=== PATIENT | female | born 1955 | race Caucasian/White ===

== ENCOUNTER → 2017-08-10 | Outpatient (CLI) | payer SELFPAY ==
[~2017-08-10] MED LIST: HYDMOR2 PO
[2017-08-11 14:49] LABS: Stool Occult Bld Immuno 1 Negative (NEGATIVE)
== END ==
LOC: LAB SHORT 15:00 → OLS 15:00
PROVIDERS: Internal Medicine
DX: Z12.11 Encounter for screening for malignant neoplasm of colon (principal)
CPT/HCPCS: 82274

== ENCOUNTER → 2018-01-19 | Outpatient (CLI) | payer OTHER ==
[2018-01-21 15:08] LABS: HPV 16 Negative (Negative); HPV 18 Negative (Negative); HPV OTHER HR TYPES Negative (Negative)
== END | disposition home or self-care (01) ==
LOC: LAB SHORT 15:00 → LAB 15:00
PROVIDERS: Internal Medicine
DX: Z01.419 Encounter for gynecological examination (general) (routine) without abnormal findings (principal)
CPT/HCPCS: 87624; G0145

== ENCOUNTER → 2019-08-08 | Outpatient (CLI) | payer OTHER ==
[2019-08-10 14:56] LABS: Stool Occult Bld Immuno 1 Negative (NEGATIVE)
== END | disposition home or self-care (01) ==
LOC: LAB SHORT 16:40 → LAB 16:40
PROVIDERS: Physician Assistant
DX: Z12.11 Encounter for screening for malignant neoplasm of colon (principal)
CPT/HCPCS: G0328

== ENCOUNTER → 2023-08-31 | Outpatient (CLI) | payer MEDICARE, OTHER ==
[~2023-08-31] MED LIST changes: +Bactrim Ds Tab1 EACH PO
== END | disposition home or self-care (01) ==
LOC: LAB 16:30 → LAB SHORT 16:30
DX: R39.9 Unspecified symptoms and signs involving the genitourinary system (principal)
CPT/HCPCS: 87086

== ENCOUNTER → 2024-03-29 | Outpatient (CLI) | payer MEDICARE, OTHER ==
[2024-03-29 17:42] LABS: BASOPHILS ABSOLUTE AUTO 0.02 K/mm3 (0.00-0.23); BASOPHILS PERCENT AUTO 1 % (0-2); EOSINOPHILS ABSOLUTE AUTO 0.09 K/mm3 (0.00-0.68); EOSINOPHILS PERCENT AUTO 2 % (0-6); Hematocrit 37.7 % (33.0-51.0); Hemoglobin 13.1 g/dL (11.5-16.0); IMMATURE GRAN ABSOLUTE AUTO 0.01 K/mm3 (0.00-0.10); IMMATURE GRAN PERCENT AUTO 0 % (0-1); LYMPHOCYTES ABSOLUTE AUTO 0.86 K/mm3 (0.84-5.20); LYMPHOCYTES PERCENT AUTO 20 % (21-46); MONOCYTES ABSOLUTE AUTO 0.27 K/mm3 (0.16-1.47); MONOCYTES PERCENT AUTO 6 % (4-13); Mean Corpuscular HGB 29.1 pg (26.0-34.0); Mean Corpuscular HGB Conc 34.7 g/dL (31.5-36.5); Mean Corpuscular Volume 84 fL (80-100); Mean Platelet Volume 8.8 fL (9.1-12.4); NEUTROPHILS ABSOLUTE AUTO 3.06 K/mm3 (1.96-9.15); NEUTROPHILS PERCENT AUTO 71 % (41-73); Platelet Count 149 K/mm3 (150-400); RDW Coefficient Variation 12.3 % (11.7-14.2); RDW Standard Deviation 37.5 fL (35.1-46.3); White Blood Cell Count 4.31 K/mm3 (4.00-11.30)
[2024-03-29 18:48] LABS: Alanine Aminotransfer (ALT/SGP 36 U/L (12-78); Albumin, Blood 3.2 g/dL (3.4-5.0); Albumin/Globulin Ratio 1.1 (0.8-1.8); Alk Phos 68 U/L (50-136); Anion Gap 13 mmol/L (3-11); Aspartate Aminotrans (AST/SGOT 22 U/L (12-37); Bilirubin, Total 0.8 mg/dL (0.1-1.0); Blood Urea Nitrogen 11 mg/dL (8-24); Bun/Creatinine Ratio 11.7 (12.0-20.0); CHOL/HDL RATIO 4.9; CO2, Blood 21 mmol/L (21-32); Calcium, Blood 8.6 mg/dL (8.5-10.1); Chloride, Blood 107 mmol/L (98-108); Cholesterol 231 mg/dL (50-200); Creatinine, Blood 0.94 mg/dL (0.40-1.00); Globulin, Blood 2.8 g/dL (2.2-4.0); Glomerular Filtration Rate 67 (60-); Glucose, Blood 104 mg/dL (70-99); HDL Cholesterol 47 mg/dL (>39); LDL/HDL RATIO 3.2; Low Density Lipoprotein Chol 153 mg/dL (0-110); Potassium, Blood 3.8 mmol/L (3.5-5.5); Sodium, Blood 137 mmol/L (136-145); Triglycerides 157 mg/dL (30-160); Very Low Density Lipoprot Chol 31 mg/dL (6-32)
== END ==
LOC: LAB SHORT 14:53 → LAB 14:53
PROVIDERS: Family Medicine
DX: I10 Essential (primary) hypertension (principal)
CPT/HCPCS: 36415; 80053; 80061; 84443; 85025

== ENCOUNTER 2024-07-19 07:28 | Day surgery (SDC) | payer MEDICARE, OTHER ==
[~2024-07-19] VITALS: Ht 161 cm; Wt 89.9 kg
[~2024-07-19 07:28] MED LIST changes: +CYCL10 PO; +GABA100 PO; +Lactated Ringer's 1,000 ML IV SCH; +MONT10T PO; +Prinivil10 MG PO; +TRAZ100 PO; +propofoL 50 ML IV ONE
--- NOTE | 2024-07-19 08:10 | NUR ---
History, Chart, Medications and Allergies reviewed before start of procedure. Patient up to Ambulate independently. Gait steady. Pre-Op teaching done. Pt verbalizes understanding. Patient confirms NPO status and agrees with scheduled surgery. Patient states colon prep results clear. Patient States Post-Procedure ride home has been arranged.
[2024-07-19] MEDS ORDERED: Lidocaine HCl 4% 5 ML SDA ONE (08:16)
[2024-07-19 08:19] VITALS: BP 138/78
--- NOTE | 2024-07-19 08:40 | NUR ---
07/19/24 0840 Samina Torres 0825 MONITOR INTACT WITH CONTINUOUS PULSE OXIMETRY, CONTINUOUS END TITAL CO2, 3-LEAD EKG AND INTERMITTENT BLOOD PRESSURE.
[2024-07-19 09:15] VITALS: BP 102/71
[2024-07-19 09:24] VITALS: BP 106/71
--- NOTE | 2024-07-19 09:29 | NUR ---
DR. VYAS VISITS W/ PT AT BEDSIDE. DR. VYAS STATES FOR PT TO KEEP F/U APPOINTMENT & WILL DISCUSS BX RESULTS AT THAT TIME.
--- NOTE | 2024-07-19 09:44 | NUR ---
D/C INSTRUCTIONS GIVEN TO PT, UNDERSTANDING VERBALIZED. PT C/O SOME ABDOMINAL PAIN, BUT STATES IT'S TOLERABLE. VSS, ON RA, DENIES NAUSEA. PT DRESSED W/O ASSIST. PT BELONGINGS RETURNED TO PT. PT WHEELED TO MAIN ENTRANCE WHERE SHE WILL BE DRIVEN HOME BY IN PRIVATE VEHICLE. STEADY GAIT NOTED UPON AMBULATION. NO VISIBLE SIGNS OF DISTRESS NOTED.
== END 2024-07-19 23:07 | disposition home or self-care (01) ==
LOC: ORSCMMR 07:28 → ORD 08:30 → ORSCMMR 23:07
PROVIDERS: Internal Medicine Gastroenterology
PROC: 0DBK8ZX Excision of Ascending Colon, Via Natural or Artificial Opening Endoscopic, Diagnostic (ICD-10-PCS; principal; 2024-07-19 08:30)
PROC: 0DB68ZX Excision of Stomach, Via Natural or Artificial Opening Endoscopic, Diagnostic (ICD-10-PCS; principal; 2024-07-19 08:30)
PROC: 0DB48ZX Excision of Esophagogastric Junction, Via Natural or Artificial Opening Endoscopic, Diagnostic (ICD-10-PCS; principal; 2024-07-19 08:30)
PROC: 0DBN8ZX Excision of Sigmoid Colon, Via Natural or Artificial Opening Endoscopic, Diagnostic (ICD-10-PCS; principal; 2024-07-19 08:30)
PROC: 0DBL8ZX Excision of Transverse Colon, Via Natural or Artificial Opening Endoscopic, Diagnostic (ICD-10-PCS; principal; 2024-07-19 08:30)
PROC: 0DBB8ZX Excision of Ileum, Via Natural or Artificial Opening Endoscopic, Diagnostic (ICD-10-PCS; principal; 2024-07-19 08:30)
PROC: 0DB98ZX Excision of Duodenum, Via Natural or Artificial Opening Endoscopic, Diagnostic (ICD-10-PCS; principal; 2024-07-19 08:30)
DX: R19.4 Change in bowel habit (principal); R10.13 Epigastric pain; R10.9 Unspecified abdominal pain; D12.2 Benign neoplasm of ascending colon; K63.5 Polyp of colon; K62.1 Rectal polyp; K20.90 Esophagitis, unspecified without bleeding; F41.9 Anxiety disorder, unspecified; Z79.899 Other long term (current) drug therapy
CPT/HCPCS: 88305; 88342; J2003; J2704; J7120

== ENCOUNTER 2024-10-14 10:20 | Day surgery (SDC) | payer MEDICARE, OTHER ==
[~2024-10-14] VITALS: Ht 162.6 cm; Wt 90.6 kg
[~2024-10-14 10:20] MED LIST changes: +Bupivacaine 0.5% W/EPI 1:200000 SDV 30 ML Vial ONE; +Lactated Ringer's 1,000 ML IV ONE; -Lactated Ringer's 1,000 ML IV SCH; -propofoL 50 ML IV ONE
[2024-10-14] MEDS ORDERED: Midazolam HCl 1MG / ML 2ML Vial ONE (10:47)
[2024-10-14] MEDS ORDERED: Dexmedetomidine HCL 200 MCG / 2 ML ONE (10:48)
--- NOTE | 2024-10-14 11:00 | NUR ---
10/14/24 1100 VINCENZO ALFARO PSEUDOCHOLINESTERASE DEFICIENCY DISCUSSED FACE TO FACE WITH ANESTHESIA AT BEDSIDE.
[2024-10-14] MEDS ORDERED: CeFAZolin Sodium 2,000 MG VIAL ONE (11:12)
[2024-10-14] MEDS ORDERED: Lactated Ringer's 1,000 ML IV ONE (11:21)
[2024-10-14] MEDS ORDERED: propofoL 20 ML IV ONE (11:34)
[2024-10-14] MEDS ORDERED: Dexamethasone Sod Phos 10 MG/ML 1ML VIAL ONE (11:44)
[2024-10-14] MEDS ORDERED: Ondansetron HCl 2 MG / ML 2ML Vial ONE (11:44)
[2024-10-14] MEDS ORDERED: Phenylephrine HCl 100 MCG/ML-NS 10MLSYR (1MG/10ML) ONE (11:59)
[2024-10-14 14:32] VITALS: BP 114/87
--- NOTE | 2024-10-14 14:35 | NUR ---
10/14/24 1435 LuaBrian siddiqui PT DENIES PAIN AND NAUSEA AT TIME OF D/C. PT AGREEABLE TO D/C HOME.
== END 2024-10-14 14:27 | disposition home or self-care (01) ==
LOC: ORSCSDS 10:20
PROVIDERS: Podiatrist Foot & Ankle Surgery
PROC: 0SGL04Z Fusion of Left Tarsometatarsal Joint with Internal Fixation Device, Open Approach (ICD-10-PCS; principal; 2024-10-14 11:30)
DX: M21.612 Bunion of left foot (principal); F41.9 Anxiety disorder, unspecified; Z79.899 Other long term (current) drug therapy
CPT/HCPCS: A6253; C1713; J0690; J1100; J2250; J2371; J2405; J2704; J7120